=== PATIENT | female | born 1955 | race Caucasian/White ===

== ENCOUNTER 2017-04-22 23:52 | Inpatient (IN) | payer MEDICARE ==
[~2017-04-22] VITALS: Ht 167.6 cm; Wt 61.7 kg
--- NOTE | 2017-04-23 00:35 | NUR ---
BIBRA 84 FROM HOME FOR RIGHT ARM PAIN S/P FALL FROM BED. DENIES KO. PT AOX3 RR EVEN AND UNLABORED. NO SOB NOTED. NAD NOTED. NO NVD AT THIS TIME. PT GOWNED AND PLACED ON [place] OLSON AT BEDSIDE FOR EVAL.
--- NOTE | 2017-04-23 00:56 | NUR ---
PT TO RADIOLOGY FOR CT AND XRAYS
--- NOTE | 2017-04-23 01:12 | NUR ---
PT RETURNED FROM RADIOLOGY
[2017-04-23] MEDS ORDERED: HYDROCODONE/APAP 10/325MG 1 EA TABLET ONE (01:26)
[2017-04-23] MEDS ORDERED: HYDROCODONE/APAP 10/325MG 1 EA TABLET PO ONE (01:30)
[2017-04-23] MEDS ORDERED: MORPHINE SULFATE INJ 4 MG/ML DISP.SYRIN ONE (01:36)
[2017-04-23] MEDS ORDERED: ONDANSETRON HCL/PF 4 MG/2 ML VIAL ONE (01:36)
--- NOTE | 2017-04-23 01:37 | NUR ---
PT SPAT MEDICATION OUT. MD AWARE. IV STARTED ON LEFT AC 20G GOOD BLOOD RETURN
[2017-04-23] MEDS ORDERED: MORPHINE SULFATE INJ 2 MG/ML DISP.SYRIN IV ONE (02:00)
[2017-04-23] MEDS ORDERED: ONDANSETRON HCL/PF 4 MG/2 ML VIAL IV ONE (02:00)
--- NOTE | 2017-04-23 02:45 | NUR ---
CALLED BIOLOGICAL TECHNICAL OFFICER FOR M/S BED
--- NOTE | 2017-04-23 02:59 | NUR ---
M/S 310-1
[2017-04-23 03:11] LABS: BASOPHILS % (AUTO) 0.1 % (0.0-2.0); EOSINOPHILS % (AUTO) 0.1 % (0.0-6.0); HEMATOCRIT 35 % (33-45); HEMOGLOBIN 12.2 g/dL (11.5-14.8); LYMPHOCYTES # (AUTO) 0.8 /CMM (0.8-4.8); MEAN CORPUSCULAR HEMOGLOBIN 35 PG (26.0-33.0); MEAN CORPUSCULAR HGB CONC 35 g/dl (31.0-36.0); MEAN CORPUSCULAR VOLUME 100 fL (82-100); MONOCYTES # (AUTO) 0.6 /CMM (0.1-1.30); MONOCYTES % (AUTO) 7.3 % (2.0-12.0); NEUTROPHILS # (AUTO) 7.3 /CMM (1.8-8.9); NEUTROPHILS % (AUTO) 83.5 % (43.0-81.0); PLATELET COUNT (AUTO) 159 /CMM (150-450); RDW COEFFICIENT OF VARIATION 12.5 (11.5-15.0); RED BLOOD CELL COUNT(AUTO) 3.49 MIL/uL (4.0-5.2); WHITE BLOOD COUNT (AUTO) 8.8 K/uL (4.3-11.0)
[2017-04-23 03:24] LABS: CALCIUM, SERUM 8.2 mg/dL (8.5-10.1); CREATININE 0.8 mg/dL (0.6-1.3); POTASSIUM 4.1 mmol/L (3.5-5.1)
[2017-04-23 03:25] LABS: INR 1.09 (0.87-1.13); PROTHROMBIN TIME 11.3 SECS (9.5-12.7)
--- NOTE | 2017-04-23 03:33 | NUR ---
REPORT GIVEN TO MARILYN GONZALEZ
[2017-04-23 04:00] VITALS: BP 129/70
--- NOTE | 2017-04-23 04:02 | NUR ---
PT [facility] [place] [facility]
[2017-04-23] MEDS ORDERED: MAGNESIUM HYDROXIDE 30 ML UDC PO PRN (04:30)
[2017-04-23] MEDS ORDERED: Z GUARD REMEDY 2 OZ OINT TP PRN (04:30)
[2017-04-23] MEDS ORDERED: ACETAMINOPHEN 325 MG TABLET PO PRN (04:30)
[2017-04-23] MEDS: IV NS 0.9% 1,000 ML IV PRN (04:39)
[2017-04-23] MEDS ORDERED: HYDROCODONE/APAP 5/325MG 1 EACH TABLET ONE (04:42)
[2017-04-23] MEDS: HYDROCODONE/APAP 5/325MG 1 EACH TABLET PO PRN ×3 (04:45→20:43)
--- NOTE | 2017-04-23 06:11 | NUR ---
MS RN NOTES AWAKE & RESPONSIVE. NOT IN ANY DISTRESS. NO SOB NOTED. DENIES ANY PAIN OR DISCOMFORT AT THIS TIME. WITH IVF INFUSING WELL. MONITORED ACCORDINGLY. CALL LIGHT WITHIN REACH. BED IN LOWEST POSITION. SR UP X 3 WITH BED ALARM ON FOR SAFETY. WILL ENDORSE TO NEXT SHIFT.
--- NOTE | 2017-04-23 07:40 | NUR ---
MS RN OPENING NOTE RECEIVED SBAR REPORT AT THE BEDSIDE. PATIENT IS IN BED AWAKE, A/O X4. PATIENT COMPLAINS OF NAUSEA AND DISCOMFORT IN RIGHT ARM. BED IS LOCKED, AT LOWEST POSITION. SIDE RAILS UP X2. CALL LIGHT WITHIN REACH. EDUCATED PATIENT TO CALL FOR HELP/ASSISTANCE USING A CALL LIGHT VIA TEACH BACK METHOD. PATIENT VERBALIZED UNDERSTANDING. ALL NEEDS ARE MET. WILL CONTINUE TO ASSESS/MONITOR THROUGHOUT THE SHIFT.
[2017-04-23 08:00] VITALS: BP_SYST 124; BP_SYST 148; BP_DIAS 78; BP_DIAS 79
[2017-04-23] MEDS: THIAMINE HCL 100 MG TABLET PO SCH (08:44)
[2017-04-23] MEDS: CHLORDIAZEPOXIDE HCL 5 MG CAPSULE PO SCH ×3 (08:44→17:34)
[2017-04-23] MEDS: CYANOCOBALAMIN 100 MCG TABLET PO SCH (08:44)
[2017-04-23] MEDS: ONDANSETRON HCL/PF 4 MG/2 ML VIAL IVP PRN (08:47)
[2017-04-23 12:00] VITALS: BP 126/68
[2017-04-23] MEDS: MORPHINE SULFATE INJ 2 MG/ML DISP.SYRIN IV PRN ×2 (12:21→17:34)
[2017-04-23] MEDS ORDERED: ONDANSETRON HCL/PF 8 MG in IV D5W 50 ML IV PRN (12:30)
[2017-04-23 16:00] VITALS: BP 158/74
--- NOTE | 2017-04-23 17:44 | NUR ---
MS RN NOTE SELECTED MEDICATION ZOFRAN 4 MG BY MISTAKE ON OMNICELL SCREEN. DID NOT REMOVE THE MEDICATION, BUT CLOSED THE DRAWER. THE SYSTEM THINKS MEDICATION WAS TAKEN OUT. CLARIFIED WITH FLORI THE CHARGE NURSE.
--- NOTE | 2017-04-23 18:50 | NUR ---
PATIENT IS RESTING IN BED WITH THE EYES OPEN, WATCHING TV. PATIENT REPORTS NAUSEA BEING ALLEVIATED AT THIS TIME, AND STATED SHE WOULD LIKE TO RECEIVE ZOFRAN CLOSER TO BEDTIME. BED IS LOCKED, IN LOWEST POSITION, SIDE RAILS UP X 2. ALL NEEDS ARE ATTENDED TO. TELEPHONE AND THE CALL LIGHT WITHIN REACH. WILL ENDORSE TO THE RESIDENTIAL ENERGY AUDITOR FOR MARGO.
[2017-04-23 20:26] VITALS: BP 157/84
--- NOTE | 2017-04-23 21:26 | NUR ---
A/A/o times upset about being here, voiding on bedpan/. Medicated for pain of shoulder
--- NOTE | 2017-04-23 22:00 | NUR ---
MS/RN ASSUMED CARE FOR CONTINUITY OF CARE. PATIENT AWAKE, ALERT, ORIENTED, RESTLESS, UNABLE TO RELAX, THIS IS AT BASELINE PER PREVIOUS RN, NO DISTRESS NOTED, CALL LIGHT IN REACH. WILL MONITOR.
[2017-04-23] MEDS: ZOLPIDEM TARTRATE 5 MG TABLET PO PRN (22:20)
--- NOTE | 2017-04-23 22:48 | NUR ---
MS/RN CHRISTA WAS GIVEN TO MAKE PATIENT SLEEP. WILL MONITOR.
--- NOTE | 2017-04-24 00:07 | NUR ---
MS/RN PATIENT IS SLEEPING AT THIS TIME, AROUSABLE, APPEAR COMFORTABLE, NO SIGNS OF DISTRESS NOTED, CALL LIGHT IN REACH. WILL MONITOR.
[2017-04-24] MEDS: MORPHINE SULFATE INJ 2 MG/ML DISP.SYRIN IV PRN (01:44)
[2017-04-24] MEDS: IV NS 0.9% 1,000 ML IV PRN ×2 (01:44→20:33)
[2017-04-24] MEDS: ONDANSETRON HCL/PF 4 MG/2 ML VIAL IVP PRN (04:18)
--- NOTE | 2017-04-24 06:10 | NUR ---
MS/RN PATIENT IS SLEEPING, AROUSABLE, NO DISTRESS NOTED, ALL NEEDS ATTENDED AT THIS TIME. WILL CONTINUE TO MONITOR.
[2017-04-24 06:38] LABS: CALCIUM, SERUM 8.2 mg/dL (8.5-10.1); CREATININE 0.6 mg/dL (0.6-1.3); MAGNESIUM 1.4 mg/dL (1.8-2.4); PHOSPHORUS 3.4 mg/dL (2.5-4.9); POTASSIUM 3.6 mmol/L (3.5-5.1)
[2017-04-24 06:40] LABS: BASOPHILS % (AUTO) 0.2 % (0.0-2.0); HEMATOCRIT 31 % (33-45); HEMOGLOBIN 10.8 g/dL (11.5-14.8); LYMPHOCYTES # (AUTO) 1.3 /CMM (0.8-4.8); LYMPHOCYTES % (AUTO) 13.3 % (20.0-44.0); MEAN CORPUSCULAR HEMOGLOBIN 35 PG (26.0-33.0); MEAN CORPUSCULAR HGB CONC 34 g/dl (31.0-36.0); MEAN CORPUSCULAR VOLUME 102 fL (82-100); MONOCYTES # (AUTO) 1.1 /CMM (0.1-1.30); MONOCYTES % (AUTO) 11.3 % (2.0-12.0); NEUTROPHILS # (AUTO) 7.6 /CMM (1.8-8.9); NEUTROPHILS % (AUTO) 75.2 % (43.0-81.0); PLATELET COUNT (AUTO) 142 /CMM (150-450); RDW COEFFICIENT OF VARIATION 12.8 (11.5-15.0); RED BLOOD CELL COUNT(AUTO) 3.09 MIL/uL (4.0-5.2); WHITE BLOOD COUNT (AUTO) 10.1 K/uL (4.3-11.0)
--- NOTE | 2017-04-24 07:36 | NUR ---
MS RN: INITIAL NOTE RECEIVED PT A/OX3. ON ROOM AIR. NO SOB. NO PAIN NOTED. NPO DUE TO NAUSEA. USES BEDPAN BUT IS AMBULATORY WITH MINIMAL ASSIST. SKIN INTACT. IV ON L AC#20. IV ON L FA #20 RUNNING NS @ 75ML/HR. SITE CLEAR AND PATENT. BED ALARM ON. RESTING COMFORTABLY IN BED. CALL LIGHT WITHIN REACH.
[2017-04-24 08:00] VITALS: BP 148/71
[2017-04-24 08:11] LABS: THYROID STIMULATING HORMONE 1.359 uIU/mL (0.358-3.74)
[2017-04-24] MEDS: CHLORDIAZEPOXIDE HCL 5 MG CAPSULE PO SCH ×3 (08:27→16:34)
[2017-04-24] MEDS: CYANOCOBALAMIN 100 MCG TABLET PO SCH (08:27)
[2017-04-24] MEDS: THIAMINE HCL 100 MG TABLET PO SCH (08:28)
[2017-04-24] MEDS: Magnesium 1GM/D5W 100ML PREMIX 100 ML IV SCH ×4 (10:29→13:52)
--- NOTE | 2017-04-24 13:00 | NUR ---
ACCORDING TO DR. PAYNE . PT CAN BE ON REGULAR DIET. STARTING Wednesday04/25/17 MIDNIGHT PT SHOULD BE NPO FOR SURGERY OF R HEMARUS FRACTURE.
[2017-04-24 16:00] VITALS: BP 139/74
--- NOTE | 2017-04-24 18:33 | NUR ---
MS RN: CLOSING NOTE PT A/OX3. NO DISTRESS NOTED. PAIN MANAGED. NO SOB NOTED. ON ROOM AIR SATING AT 97%. RIGHT SHOULDER SLING IN PLACE PER MD ORDER. TOOK ALL MEDICATIONS ON TIME. NO ADVERSE REACTIONS NOTED. NO N/V NOTED. CHANGED FROM NPO TO REGULAR DIET PER MD BOTTE ORDER DUE TO SURGERY TO BE POSSIBLY DONE ON WEDNESDAY. NEEDS TO BE NPO BY 04/25/17 AT MIDNIGHT. USES BED PAIN. SKIN INTACT. L AC #20. l FA #20 RUNNING NS AT 75ML/HR. REPLACED MAGNESIUM WITH 4 BAGS. LEVELS WHERE 1.4. RESTING COMFORTABLY IN BED. CALL LIGHT WITHIN REACH.
[2017-04-24 20:00] VITALS: BP 124/76
[2017-04-24] MEDS: HYDROCODONE/APAP 5/325MG 1 EACH TABLET PO PRN (21:54)
[2017-04-24] MEDS: ZOLPIDEM TARTRATE 5 MG TABLET PO PRN (21:54)
[2017-04-25 06:21] LABS: BASOPHILS % (AUTO) 0.3 % (0.0-2.0); EOSINOPHILS % (AUTO) 0.4 % (0.0-6.0); HEMATOCRIT 28 % (33-45); HEMOGLOBIN 9.9 g/dL (11.5-14.8); LYMPHOCYTES # (AUTO) 1.7 /CMM (0.8-4.8); LYMPHOCYTES % (AUTO) 18.1 % (20.0-44.0); MEAN CORPUSCULAR HEMOGLOBIN 36 PG (26.0-33.0); MEAN CORPUSCULAR HGB CONC 35 g/dl (31.0-36.0); MEAN CORPUSCULAR VOLUME 101 fL (82-100); MONOCYTES # (AUTO) 1.1 /CMM (0.1-1.30); MONOCYTES % (AUTO) 11.7 % (2.0-12.0); NEUTROPHILS # (AUTO) 6.5 /CMM (1.8-8.9); NEUTROPHILS % (AUTO) 69.5 % (43.0-81.0); PLATELET COUNT (AUTO) 134 /CMM (150-450); RDW COEFFICIENT OF VARIATION 12.6 (11.5-15.0); RED BLOOD CELL COUNT(AUTO) 2.75 MIL/uL (4.0-5.2); WHITE BLOOD COUNT (AUTO) 9.4 K/uL (4.3-11.0)
[2017-04-25 06:35] LABS: CALCIUM, SERUM 7.8 mg/dL (8.5-10.1); CREATININE 0.7 mg/dL (0.6-1.3); MAGNESIUM 2.1 mg/dL (1.8-2.4); PHOSPHORUS 2.9 mg/dL (2.5-4.9); POTASSIUM 3.3 mmol/L (3.5-5.1)
--- NOTE | 2017-04-25 07:36 | NUR ---
MS RN: INITIAL NOTE RECEIVED PT A/OX3. ON ROOM AIR. NO SOB NOTED. NO PAIN NOTED. NO DISTRESS NOTED.USES BED BAHENA,. AMBULATES WITH MINIMAL ASSISTANCE. SKIN INTACT. RIGHT SHOULDER SLING IN PLACE. ON REGULAR DIET. L AC #20 IV. L FA #20 RUNNING NS AT 75ML/HR. SITE CLEAR AND PATENT. NO REDNESS OR INFILTRATION NOTED. RESTING COMFORTABLY IN BED. CALL LIGHT WITHIN REACH.
[2017-04-25 08:00] VITALS: BP 145/81
--- NOTE | 2017-04-25 08:14 | NUR ---
patient aa03; no s/s of acute distress; c/o pain to right shoulder relieved by norco (see emar). c/o insomnia relieved bv ambien prn. otherwise, VSS and no significant changes this shift. will endorse to oncoming RN
[2017-04-25] MEDS: CYANOCOBALAMIN 100 MCG TABLET PO SCH (08:29)
[2017-04-25] MEDS: CHLORDIAZEPOXIDE HCL 5 MG CAPSULE PO SCH ×3 (08:29→16:27)
[2017-04-25] MEDS: THIAMINE HCL 100 MG TABLET PO SCH (08:29)
[2017-04-25] MEDS: POTASSIUM CHLORIDE 20 MEQ TAB.PRT.SR PO SCH ×3 (11:55→14:14)
[2017-04-25] MEDS: SODIUM CHLORIDE 1000 MG TABLET.SOL PO SCH ×2 (11:55→16:29)
[2017-04-25] MEDS ORDERED: POTASSIUM CHLORIDE 20 MEQ TAB.PRT.SR PO SCH (12:00)
[2017-04-25 16:00] VITALS: BP 130/80
[2017-04-25] MEDS: IV NS 0.9% 1,000 ML IV PRN (16:26)
--- NOTE | 2017-04-25 18:27 | NUR ---
RN: CLOSING NOTE PT A/OX3. ON ROOM AIR. NO DISTRESS NOTED. NO PAIN NOTED. NO SOB NOTED. SHOULD BE NPO AT MIDNIGHT DUE TO SURGERY OF R HUMERUS ON 04/26/17. PT AWARE. TOOK ALL MEDICATIONS ON TIME. NO ADVERSE REACTIONS NOTED. NO N/V NOTED. IV ON RIGHT AC REMOVED DUE TO LEAKING. NO INFILTRATION NOTED. NO PAIN NOTED. NO BLEEDING NOTED. REMOVED IV. PT HAS IV ON L FOREARM PATENT AND RUNNING FLUIDS NS AT 40ML/HR. SITE CLEAR. RESTING COMFORTABLY IN BED. CALL LIGHT WITHIN REACH.
--- NOTE | 2017-04-25 19:30 | NUR ---
MS RN: INITIAL NOTE RECEIVED PT A/OX3. ON ROOM AIR. NO SOB NOTED. NO PAIN NOTED. NO DISTRESS NOTED.USES BED BAHENA,. AMBULATES WITH MINIMAL ASSISTANCE. SKIN INTACT. RIGHT SHOULDER SLING IN PLACE. ON REGULAR DIET. L FA #20 RUNNING NS AT 40 ML/HR. SITE CLEAR AND PATENT. NO REDNESS OR INFILTRATION NOTED. RESTING COMFORTABLY IN BED. CALL LIGHT WITHIN REACH.
[2017-04-25 20:00] VITALS: BP 140/81
[2017-04-25] MEDS: MORPHINE SULFATE INJ 2 MG/ML DISP.SYRIN IV PRN (20:58)
[2017-04-25 22:00] VITALS: BP 140/81
[2017-04-25] MEDS: ZOLPIDEM TARTRATE 5 MG TABLET PO PRN (22:05)
[2017-04-26 06:36] LABS: BASOPHILS # (AUTO) 0.1 /CMM (0.0-0.2); EOSINOPHILS % (AUTO) 0.4 % (0.0-6.0); HEMATOCRIT 28 % (33-45); HEMOGLOBIN 9.6 g/dL (11.5-14.8); LYMPHOCYTES # (AUTO) 1.4 /CMM (0.8-4.8); MEAN CORPUSCULAR HEMOGLOBIN 36 PG (26.0-33.0); MEAN CORPUSCULAR HGB CONC 35 g/dl (31.0-36.0); MEAN CORPUSCULAR VOLUME 102 fL (82-100); MONOCYTES % (AUTO) 11.6 % (2.0-12.0); NEUTROPHILS # (AUTO) 6.4 /CMM (1.8-8.9); PLATELET COUNT (AUTO) 160 /CMM (150-450); RDW COEFFICIENT OF VARIATION 12.5 (11.5-15.0)
--- NOTE | 2017-04-26 06:47 | NUR ---
MS RN NOTE PATIENT STABLE. ALL NEEDS MET AND ATTENDED TO. SLEEPING AT THIS TIME. HAS BEEN NPO SINCE MIDNIGHT FOR POSSIBLE SURGERY TODAY. WILL ENDORSE TO DAY SHIFT FOR MARGO.
--- NOTE | 2017-04-26 07:15 | NUR ---
ms rn initial notes Received patient in bed, awake, head of bed elevated, no SOB or distress noted, on room air and tolerated well. IV intact and patent with IVF infusing well. Per patient she is going to have surgery today but not in schedule will follow up with coury. Kept NPO for now. Kept patient clean and comfortable in bed, call light with in patient reach, will continue to monitor accordingly.
[2017-04-26 07:17] LABS: CALCIUM, SERUM 7.8 mg/dL (8.5-10.1); CREATININE 0.6 mg/dL (0.6-1.3); MAGNESIUM 1.8 mg/dL (1.8-2.4); PHOSPHORUS 2.4 mg/dL (2.5-4.9); POTASSIUM 3.6 mmol/L (3.5-5.1)
[2017-04-26 08:00] VITALS: BP 133/80
[2017-04-26] MEDS: CHLORDIAZEPOXIDE HCL 5 MG CAPSULE PO SCH ×3 (09:54→17:12)
[2017-04-26] MEDS: CYANOCOBALAMIN 100 MCG TABLET PO SCH (09:54)
[2017-04-26] MEDS: SODIUM CHLORIDE 1000 MG TABLET.SOL PO SCH ×2 (09:54→17:14)
[2017-04-26] MEDS: THIAMINE HCL 100 MG TABLET PO SCH (09:54)
[2017-04-26] MEDS ORDERED: Sodium Phosphate 15 MMOL in IV D5W 250 ML IV ONE (13:00)
[2017-04-26 16:00] VITALS: BP_SYST 127; BP_DIAS 100; BP_DIAS 90
[2017-04-26] MEDS: IV NS 0.9% 1,000 ML IV PRN (17:49)
--- NOTE | 2017-04-26 19:08 | NUR ---
ms rn closing notes All needs provided, attended, and anticipated. Kept patient clean and comfortable in bed, call light with in patient reach,endorsed to next shift RN to continue care.
--- NOTE | 2017-04-26 19:30 | NUR ---
MS RN NOTE RECEIVED PT A/OX3. ON ROOM AIR. NO SOB NOTED. NO PAIN NOTED. NO DISTRESS NOTED.USES BED BAHENA,. AMBULATES WITH MINIMAL ASSISTANCE. SKIN INTACT. L FA #22 RUNNING NS AT 40 ML/HR. SITE CLEAR AND PATENT. NO REDNESS OR INFILTRATION NOTED. RESTING COMFORTABLY IN BED. CALL LIGHT WITHIN REACH.
[2017-04-26 20:00] VITALS: BP 138/82
[2017-04-26 22:00] VITALS: BP 138/82
[2017-04-26] MEDS: MORPHINE SULFATE INJ 2 MG/ML DISP.SYRIN IV PRN (22:42)
[2017-04-26] MEDS: ZOLPIDEM TARTRATE 5 MG TABLET PO PRN (23:09)
[2017-04-27] VITALS (7 sets, daily range): BP systolic 111–151; BP diastolic 68–100
[2017-04-27] MEDS: MORPHINE SULFATE INJ 2 MG/ML DISP.SYRIN IV PRN (02:20)
[2017-04-27 06:40] LABS: BASOPHILS % (AUTO) 0.4 % (0.0-2.0); EOSINOPHILS # (AUTO) 0.1 /CMM (0.0-0.7); EOSINOPHILS % (AUTO) 1.2 % (0.0-6.0); HEMATOCRIT 28 % (33-45); HEMOGLOBIN 9.7 g/dL (11.5-14.8); LYMPHOCYTES # (AUTO) 1.6 /CMM (0.8-4.8); LYMPHOCYTES % (AUTO) 20.3 % (20.0-44.0); MEAN CORPUSCULAR HEMOGLOBIN 35 PG (26.0-33.0); MEAN CORPUSCULAR HGB CONC 35 g/dl (31.0-36.0); MEAN CORPUSCULAR VOLUME 102 fL (82-100); MONOCYTES # (AUTO) 1.1 /CMM (0.1-1.30); MONOCYTES % (AUTO) 14.7 % (2.0-12.0); NEUTROPHILS # (AUTO) 4.9 /CMM (1.8-8.9); NEUTROPHILS % (AUTO) 63.4 % (43.0-81.0); PLATELET COUNT (AUTO) 190 /CMM (150-450); RDW COEFFICIENT OF VARIATION 12.6 (11.5-15.0); RED BLOOD CELL COUNT(AUTO) 2.75 MIL/uL (4.0-5.2); WHITE BLOOD COUNT (AUTO) 7.7 K/uL (4.3-11.0)
--- NOTE | 2017-04-27 06:56 | NUR ---
MS RN NOTE PATIENT STABLE. NPO SINCE MIDNIGHT FOR SURGERY THIS AM. CONSENT AND PRE-OP CHECKLIST COMPLETE AND IN CHART. ALL NEEDS MET AND ATTENDED TO. WILL ENDORSE TO DAY SHIFT FOR [facility].
[2017-04-27 07:01] LABS: CREATININE 0.7 mg/dL (0.6-1.3); PHOSPHORUS 3.5 mg/dL (2.5-4.9); POTASSIUM 3.3 mmol/L (3.5-5.1)
[2017-04-27] MEDS ORDERED: BACITRACIN 50000 UNITS/VIAL ONE (07:01)
--- NOTE | 2017-04-27 07:10 | NUR ---
m/s still runner: notes pt was picked up at this time. introduce myself prior to leaving to o.r. will continue to monitor.
[2017-04-27] MEDS ORDERED: MIDAZOLAM HCL 2 MG/2ML VIAL ONE (07:29)
[2017-04-27] MEDS ORDERED: HYDROMORPHONE INJ 2 MG/ML DISP.SYRIN ONE (07:29)
[2017-04-27] MEDS ORDERED: ROCURONIUM BROMIDE 50 MG/5 ML ONE ×2 (07:29→09:34)
[2017-04-27] MEDS: THIAMINE HCL 100 MG TABLET PO SCH (09:00)
[2017-04-27] MEDS: CHLORDIAZEPOXIDE HCL 5 MG CAPSULE PO SCH ×3 (09:00→16:45)
[2017-04-27] MEDS: SODIUM CHLORIDE 1000 MG TABLET.SOL PO SCH ×2 (09:00→16:45)
[2017-04-27] MEDS: CYANOCOBALAMIN 100 MCG TABLET PO SCH (09:00)
[2017-04-27] MEDS ORDERED: POTASSIUM CHLORIDE 20 MEQ TAB.PRT.SR PO ONE (10:00)
[2017-04-27] MEDS ORDERED: BUPIVACAINE 0.5 % PF 150 MG/30 ML VIAL ONE (10:02)
--- NOTE | 2017-04-27 11:00 | NUR ---
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 sling and dressing in place, noted with skin discoloration on right shoulder/arm area. no c/o pain or any discomfort. right eye partially close compare to left. speech clear and coherent. per report from bon (o.r. nurse), pt had a nerve block and aware of right eye drooping by dr. marinelli (anesthesiologist) per report. cn aware. pt awake, a/ox4. vss. instructed to call for assistance. will continue to monitor.
--- NOTE | 2017-04-27 13:57 | NUR ---
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 eval o.t. in room for eval and tx at this time.
--- NOTE | 2017-04-27 14:00 | NUR ---
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 right arm elevated with pillow. instructed pt to call to put it back on when getting out of bed. sling reinforced by o.t., but threatened to remove it again once she leaves as stated. cn made aware. will continue to monitor.
--- NOTE | 2017-04-27 15:30 | NUR ---
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 eval p.t. eval and tx done in room, pt easily irritable and remove her sling once more. reinforce by p.t. reality orientation provided prn. encouraged to verbalized feelings. will continue to monitor.
[2017-04-27] MEDS: ANCEF 1 GM/50 ML D5W IV SCH ×2 (15:40)
--- NOTE | 2017-04-27 18:40 | NUR ---
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 no c/o pain or any discomfort. instructed to call for assistance. will continue to monitor.
--- NOTE | 2017-04-27 19:16 | NUR ---
MS RN OPENING NOTES: PT IS RESTING COMFORTABLY IN BED. PT IS A/OX3. PT ENCOURAGED TO USE PILLOW TO ELEVATE RIGHT ARM BUT PT IS REFUSING. PT ALSO ENCOURAGED TO WEAR SLING BUT SNAPPED AND YELLED AM NURSE WAS SHOWING ME HER SLING IN THE DRAWER. PT REFUSED. NOTICED BRUISING ON RIGHT ARM. CALL LIGHT WITHIN PT'S REACH. BED KEPT IN LOW, LOCKED POSITION, AND SIDE RAILS X 2 UP. WILL CONTINUE TO MONITOR PT.
--- NOTE | 2017-04-27 22:43 | NUR ---
MS SANDERS CLOSING NOTES: ALL NEEDS WERE ATTENDED AND ANTICIPATED FOR. PT IS RESTING COMFORTABLY IN BED. PT IS A/OX3. PT STILL REFUSING PILLOW AND SLING. NOTICED BRUISING/DISCOLORATION ON RIGHT ARM. CALL LIGHT WITHIN PT'S REACH. BED KEPT IN LOW, LOCKED POSITION, AND SIDE RAILS X 2 UP. ENDORSED TO MARILYN SELLERS, FOR MARGO. Addendum: 04/27/17 at 2240 by CLAUDIA LAGOS RN PT ALSO HAS IV ON L HAND AND IS BEING INFUSED WITH NS AT 40ML/HR.
[2017-04-27] MEDS: HYDROCODONE/APAP 5/325MG 1 EACH TABLET PO PRN (23:00)
--- NOTE | 2017-04-27 23:04 | NUR ---
nursing notes: rECIEVED PATIENT ALERT AND ORIENTATED. Medicated for right arm/shoulder pain 04/20. Refused to have the sling placed on, explaination of why the MD ordered the sling and the benefits explained. Refused to place her arm on a pilllow, states I turn on my left side and the pillow only gets in the way, I don't any pillows. The arm is discolored , warm fingers all move, and radial pulse palpable. Verbalized she is upset with the nurses here that are always taking her pulse and waking her, I can't sleep here.
[2017-04-28] MEDS: ANCEF 1 GM/50 ML D5W IV SCH ×4 (00:04→09:13)
--- NOTE | 2017-04-28 03:27 | NUR ---
NURSING NOTES: Patient alert and orientated X#
--- NOTE | 2017-04-28 03:28 | NUR ---
NURSING NOTES: Patent became mine at 2200. She is talkative and not like being in a hosptal, "I can't sleep Here" Noted bruise right side of her body, right arm s/p reverse angioplasty right shoulder. Her right arm from shoulders to the tip of her fingers bruised in color, refusing to keep up on a pillow or in the ordered sling, the SANTIAGO Hilario aware. She becomes angry when explained to her andwill turn away from the nurse. Medicated with [place] and this is effective for pain right shoulder. Ambulates to the bathroom with nurse as standby, steady on her legs
[2017-04-28] MEDS: HYDROCODONE/APAP 5/325MG 1 EACH TABLET PO PRN ×2 (04:06→09:12)
[2017-04-28 06:37] LABS: BASOPHILS % (AUTO) 0.2 % (0.0-2.0); EOSINOPHILS % (AUTO) 0.3 % (0.0-6.0); HEMATOCRIT 23 % (33-45); HEMOGLOBIN 7.9 g/dL (11.5-14.8); LYMPHOCYTES # (AUTO) 1.3 /CMM (0.8-4.8); LYMPHOCYTES % (AUTO) 12.7 % (20.0-44.0); MEAN CORPUSCULAR HEMOGLOBIN 35 PG (26.0-33.0); MEAN CORPUSCULAR HGB CONC 34 g/dl (31.0-36.0); MEAN CORPUSCULAR VOLUME 103 fL (82-100); MONOCYTES # (AUTO) 1.8 /CMM (0.1-1.30); MONOCYTES % (AUTO) 17.5 % (2.0-12.0); NEUTROPHILS # (AUTO) 7.3 /CMM (1.8-8.9); NEUTROPHILS % (AUTO) 69.3 % (43.0-81.0); PLATELET COUNT (AUTO) 184 /CMM (150-450); RDW COEFFICIENT OF VARIATION 12.8 (11.5-15.0); RED BLOOD CELL COUNT(AUTO) 2.27 MIL/uL (4.0-5.2); WHITE BLOOD COUNT (AUTO) 10.5 K/uL (4.3-11.0)
[2017-04-28 07:12] LABS: CALCIUM, SERUM 7.6 mg/dL (8.5-10.1); CREATININE 0.6 mg/dL (0.6-1.3); MAGNESIUM 1.5 mg/dL (1.8-2.4); PHOSPHORUS 3.1 mg/dL (2.5-4.9); POTASSIUM 3.4 mmol/L (3.5-5.1)
[2017-04-28 08:00] VITALS: BP 120/75
--- NOTE | 2017-04-28 08:13 | NUR ---
RN OPENING NOTES RECEIVED PATIENT AWAKE RESTING COMFORTABLY IN BED. AOX3. DENIES SOB AND CP. 10 SEVERE PAIN IN THE RIGHT HUMERUS. SEVERE ECCHYMOSIS NOTED. IV ACCES ON YANI LFA PATENT AND INTACT WITH NS RUNNING AT 40 ML/HR. PT REPORTED TO REFUSE SLING. SANTIAGO LYNNY AWARE. SATURATING ADEQUATELY ON RA. BED LOCKED IN THE LOWEST POSITION WITH SIDE RAILS UP X2. CALL LIGHT WITHIN REACH. WILL CONTINUE TO MONITOR, ASSESS AND EDUCATE THROUGHOUT SHIFT.
[2017-04-28] MEDS: CHLORDIAZEPOXIDE HCL 5 MG CAPSULE PO SCH ×3 (09:11→17:57)
[2017-04-28] MEDS: SODIUM CHLORIDE 1000 MG TABLET.SOL PO SCH ×2 (09:11→17:57)
[2017-04-28] MEDS: THIAMINE HCL 100 MG TABLET PO SCH (09:13)
[2017-04-28] MEDS: CYANOCOBALAMIN 100 MCG TABLET PO SCH (09:13)
[2017-04-28] MEDS ORDERED: POTASSIUM CHLORIDE 20 MEQ TAB.PRT.SR PO SCH (11:00)
[2017-04-28] MEDS: Magnesium 1GM/D5W 100ML PREMIX 100 ML IV SCH ×2 (11:07→13:33)
[2017-04-28 11:47] LABS: LYMPHOCYTES % (MANUAL) 15 % (16-48); MONOCYTES % (MANUAL) 7 % (0-11.0); NEUTROPHILS % (MANUAL) 78 (42-76)
--- NOTE | 2017-04-28 12:15 | NUR ---
RN NOTES IV PLACED ON THE LEFT AC 22 G PLACED. PATIENT TOLERATED WELL. ONE ATTEMPT. IV NS RUNNING AT 40ML/HR. IV PATENT AND INTACT. WILL CONTINUE TO MONITOR.
[2017-04-28] MEDS: MORPHINE SULFATE INJ 2 MG/ML DISP.SYRIN IV PRN ×2 (13:37→17:58)
[2017-04-28 16:00] VITALS: BP 131/71
[2017-04-28] MEDS: IV NS 0.9% 1,000 ML IV PRN (17:57)
--- NOTE | 2017-04-28 19:20 | NUR ---
MS RN OPENING NOTES: RECEIVED PT RESTING COMFORTABLY IN BED. PT HAS SLING ON RIGHT ARM. SWELLING AND ECCHYMOSIS NOTED. PT STATED THAT SHE DOES NOT WANT TO BE WOKEN UP IF SHE IS SLEEPING. IV PATENT AND INTACT AND BEING INFUSED WITH NS AT 40ML/HR. CALL LIGHT WITHIN PT'S REACH. BED KEPT IN LOW, LOCKED POSITION, AND SIDE RAILS X 2 UP. WILL CONTINUE TO MONITOR PT.
--- NOTE | 2017-04-28 19:33 | NUR ---
RN CLOSING NOTES PATIENT RESTING COMFORTABLY IN BED. 10/10 PAIN IN THE RIGHT HUMERUS. RIGHT ARM SWELLING AND ECCHYMOSIS NOTED. AOX3. DENIES CP. DENIES SOB. IV PATENT AND INTACT. NO ACUTE DISTRESS. RESPIRATIONS EVEN AND UNLABORED. ALL NEEDS MET. ALL MEDS GIVEN APPROPRIATE. WILL ENDORSE TO NIGHT RN FOR MARGO.
[2017-04-28 20:00] VITALS: BP 117/70
[2017-04-29 06:42] LABS: CALCIUM, SERUM 7.7 mg/dL (8.5-10.1); CREATININE 0.6 mg/dL (0.6-1.3); MAGNESIUM 1.7 mg/dL (1.8-2.4); POTASSIUM 3.5 mmol/L (3.5-5.1)
--- NOTE | 2017-04-29 06:51 | NUR ---
MS RN CLOSING NOTES: ALL NEEDS WERE ATTENDED AND ANTICIPATED FOR. PT IS RESTING COMFORTABLY IN BED WITH SLING ON RIGHT ARM. SWELLING AND ECCHYMOSIS NOTED. L FOREARM #22G IS PATENT AND INTACT AND BEING INFUSED WITH NS AT 40ML/HR. PT ALSO HAS IV ON L AC #22G AND IS PATENT AND INTACT. CALL LIGHT WITHIN PT'S REACH. BED KEPT IN LOW, LOCKED POSITION, AND SIDE RAILS X 2 UP. WILL ENDORSE TO AM NURSE FOR MARGO.
--- NOTE | 2017-04-29 07:54 | NUR ---
MS/RN OPENING NOTE PATIENT RECEIVED IN BED IN STABLE CONDITION. A/O X 3. NO SIGNS OF ACUTE DISTRESS. COMPLAIN OF PAIN TO RIGHT ARM. S/P REVERSE SHOULDER ARTHROPLASTY. NOTED WITH DISCOLORATION OF RIGHT HAND. PER REPORT MD NOTIFIED. ALL NEEDS ATTENDED TO AT THIS TIME. CALL LIGHT WITHIN REACH. WILL CONTINUE TO MONITOR TO ENSURE SAFETY.
[2017-04-29 08:10] VITALS: BP 129/74
[2017-04-29] MEDS: HYDROCODONE/APAP 5/325MG 1 EACH TABLET PO PRN (08:59)
[2017-04-29] MEDS: CHLORDIAZEPOXIDE HCL 5 MG CAPSULE PO SCH ×3 (08:59→17:32)
[2017-04-29] MEDS: SODIUM CHLORIDE 1000 MG TABLET.SOL PO SCH ×3 (09:00→17:00)
[2017-04-29] MEDS: THIAMINE HCL 100 MG TABLET PO SCH (09:00)
[2017-04-29] MEDS: CYANOCOBALAMIN 100 MCG TABLET PO SCH (09:00)
[2017-04-29] MEDS: Magnesium 1GM/D5W 100ML PREMIX 100 ML IV SCH ×2 (12:17→13:25)
--- NOTE | 2017-04-29 13:18 | NUR ---
MS/RN SPOKE WITH COURY SPOKE WITH COURY AND MADE AWARE PATIENT'S RIGHT ARM S/P ARTHROPLASTY NOTED WITH SWELLING AND DISCOLORATION. PER PA COURY TO CHECK PULSES AND CAPILLARY REFILL. PULSES AND CAPILLARY REFILL NORMAL. COURY AWARE WITH NO ORDERS AND CONTINUE MONITOR FOR FURTHER CHANGES.
[2017-04-29] MEDS ORDERED: FERR-58 PO (13:41)
[2017-04-29] MEDS ORDERED: MULT-331 PO (13:41)
[2017-04-29] MEDS ORDERED: FOLI1TAB16 PO (13:41)
--- NOTE | 2017-04-29 15:54 | NUR ---
Social service consult requested by case fitter Shiela due to pt. refusing to go to SNF and needs SNF placement. SW met with pt. bedside. Pt. is alert and oriented x 3. Pt. was friendly with SW during the assessment. SW encouraged pt. to go to a snf prior to going home. Pt. states she thought about the pros and cons and has decided to go to a senior living facility for rehab. JULIANN followed up with case fitter Shiela informing her that pt. is willing to go to SNF.
[2017-04-29 16:00] VITALS: BP_SYST 129; BP_SYST 131; BP_DIAS 74
--- NOTE | 2017-04-29 18:48 | NUR ---
MS/BATTERY ASSEMBLER PATIENT DISCHARGE TO [facility]. A/O X 4. NO SIGNS OF ACUTE DISTRESS. NO COMPLAIN OF PAIN OR DISCOMFORT. REPORT GIVEN TO ANGELA LOPEZ FROM FACILITY. DISCHARGE INSTRUCTIONS AND TEACHINGS PROVIDED. PATIENT VERBALIZED UNDERSTANDING OF TEACHINGS. JESSICA MILLER FROM FACILITY AND PATIENT MADE AWARE TO MAKE FOLLOW UP APPT. WITH DR TAN SNIDER FOR S/P RIGHT SHOULDER ARTHROPLASTY FOLLOW UP. NAME BAND AND IV LINE REMOVED. LEFT VIA GURNEY ACCOMPANIED BY 2 MEAT GRADER IN STABLE CONDITION.
== END 2017-04-29 18:40 | DRG 483 ==
LOC: ER 23:54 → MED 04-23 03:49
PROVIDERS: ADMIT Nurse Practitioner Acute Care; ATTEND Nurse Practitioner Acute Care
PROC: 0RRJ00Z Replacement of Right Shoulder Joint with Reverse Ball and Socket Synthetic Substitute, Open Approach (ICD-10-PCS; principal; 2017-04-27 08:25)
DX: S42.201A Unspecified fracture of upper end of right humerus, initial encounter for closed fracture (principal); E87.2 Acidosis; E22.2 Syndrome of inappropriate secretion of antidiuretic hormone; E83.42 Hypomagnesemia; E86.0 Dehydration; W06.XXXA Fall from bed, initial encounter; Y92.009 Unspecified place in unspecified non-institutional (private) residence as the place of occurrence of the external cause; E87.6 Hypokalemia; I10 Essential (primary) hypertension; F41.9 Anxiety disorder, unspecified; Z96.611 Presence of right artificial shoulder joint; Y93.9 Activity, unspecified; D64.9 Anemia, unspecified
CPT/HCPCS: 36415; 70450-TC; 71010-TC; 72125-TC; 73020; 73030-TC; 73080-TC; 73090-TC; 73100-TC; 73200-TC; 80048-TC; 80061-TC; 82728-TC; 83540-TC; 83735-TC; 83935-TC; 84100-TC; 84439-TC; 84443-TC; 85025-TC; 85730-TC; 86850-TC; 87081-TC; 88305-TC; 88311-TC; 93307-TC; 97116-TC; 97530-TC; A4217; A4565; A4606; A6402; A9563; C1713; J0690; J1100; J1170; J1885; J2250; J2270; J2405; J2704; J2710; J3475; J3490; J7030; J7060; L0172; Z7610